=== PATIENT | male | born 1985 | race Caucasian/White ===

== ENCOUNTER 2024-01-04 19:48 | Observation (INO) | payer BC ==
--- NOTE | 2024-01-04 20:36 | RAD REPORT ---
EXAMINATION: ONE VIEW CHEST XR CLINICAL INDICATION: Male, 38 years old.CHEST PAIN TECHNIQUE: 1 View, AP supine, X-ray of the chest was performed. [id number]. COMPARISON: No prior exam. FINDINGS: Lungs and pleura: Clear lungs. No effusion. Heart and mediastinum: Normal heart size. Unremarkable mediastinal contours. Osseous structures: No acute abnormality. Tubes/lines: None Other: None. IMPRESSION: No acute intrathoracic abnormality.
[2024-01-04 20:59] LABS: Absolute Basophils 0.1 K/uL (0-0.5); Absolute Eosinophils 0.7 K/uL (0-0.5); Absolute Lymphocytes (CBC) 1.8 K/uL (0.7-4.9); Absolute Monocytes 0.9 K/uL (0.1-1.3); Absolute Neutrophil 2.9 K/uL (1.8-8.0); Basophils % 1.2 % (0-1.3); Eosinophils % 11.8 % (0-4.4); Hematocrit 37.6 % (39.6-49.0); Hemoglobin 12.5 g/dL (13.6-17.9); Lymphocytes % 28.2 % (15.3-44.8); MCH 28.2 pg (27.0-35.0); MCHC 33.2 g/dL (32.0-36.0); MCV 84.9 fL (80-100); MPV 9.3 fL (7.6-11.3); Monocytes % 13.6 % (3.3-12.3); Neutrophils % 45.2 % (41.7-73.7); Nucleated Red Blood Cells % 0.1 % (0-0); Platelets 266 thou/uL (152-406); RBC Red Blood Cell Count 4.43 M/uL (4.33-5.43)
[2024-01-04 21:06] LABS: Thyroid Stimulating Hormone 2.27 uIU/mL (0.358-3.740); Troponin High Sensitivity 3.8 pg/mL (<58.9)
[2024-01-04] MEDS ORDERED: METOPROLOL TARTRATE 5 MG/5 ML INJ IV ONE (21:26)
--- NOTE | 2024-01-04 21:27 | EDPHYS ---
Physician Documentation [facility] Name: Tad Rosales Age: 38 yrs Sex: Male : 1985 Arrival Date: 01/04/2024 Time: 19:48 Bed 4 Private MD: ED Physician Alex Jason HPI: 01/03 20:21 This 38 yrs old Male presents to ER via Ambulatory with complaints of ec2 Irregular Pulse, Palpitations. 20:21 Patient arrives today for evaluation of palpitations. Patient reports he is been ec2 experiencing palpitation for the past week. Patient reports a history of mitral valve regurgitation as well as cardiomegaly, hypertension. Patient reports no chest pain or difficulty breathing. Reports no vomiting, does endorse some diarrhea.. Historical: - Allergies: 20:11 No Known Allergies; al5 - Home Meds: 20:11 insulin pump cartridge subcutaneous cartridge [Active]; Wellbutrin Oral 150 mg daily al5 [Active]; Lexapro 10 mg Oral tablet daily [Active]; rosuvastatin 40 mg oral tablet daily [Active]; losartan oral [Active]; hydrocodone-acetaminophen 10-325 mg Oral tablet 1 tab as needed [Active]; meloxicam 15 mg oral tablet daily [Active]; Ambien 10 mg Oral tablet every day at bedtime [Active]; methocarbamol 750 mg Oral tablet every day at bedtime [Active]; - PMHx: 20:11 Diabetes mellitus; insomnia; depression; mitral regurgitation; cardiomegaly; al5 - PSHx: 20:16 back surgery; al5 - Immunization history:: Adult Immunizations up to date. - Infectious Disease History:: Denies. - Social history:: Smoking status: Patient denies any tobacco usage or history of. ROS: 20:21 Constitutional: as per hpi ec2 Exam: 20:21 Constitutional: GEN: NAD Head: atraumatic Eyes: EOMI Ears: External ears are ec2 normal. CV: regular rate LUNGS: no respiratory distress ABD: non-distended SKIN: no evidence of rashes MSK: no evidence of trauma Vital Signs: 20:00 BP 139 / 82; Pulse 58; Resp 14; Pulse Ox 100% on R/A; al5 20:10 BP 155 / 98; Pulse 63; Resp 18; Temp 98.2; Pulse Ox 99% on R/A; Weight 97.52 kg; Height al5 6 ft. 4 in. ; Pain 0/10; 20:19 BP 134 / 91; Pulse 62; Resp 18; Pulse Ox 98% on R/A; al5 20:30 BP 143 / 82; Pulse 61; Resp 15; Pulse Ox 99% on R/A; al5 20:48 BP 125 / 82; Pulse 62; Resp 17; Pulse Ox 98% on R/A; al5 21:00 BP 127 / 97; Pulse 110; Resp 17; Pulse Ox 98% on R/A; al5 21:30 BP 127 / 83; Pulse 52; Resp 20; Pulse Ox 98% on R/A; al5 22:00 BP 119 / 75; Pulse 53; Resp 14; Pulse Ox 98% on R/A; al5 20:10 Body Mass Index 26.17 (97.52 kg, 193.04 cm) al5 20:10 Pain Scale: Adult al5 MDM: 19:51 Patient medically screened. ec2 20:02 ED course: EKG independently reviewed and interpreted by me, shows sinus rhythm, rate ec2 of 81, no acute ST segment elevations, intervals are nonactionable.. 20:23 Data reviewed: vital signs. ED course: Patient arrives today for evaluation of ec2 palpitations. Examination remarkable for well-appearing nontoxic individuals otherwise in no acute distress with a reassuring examination. Will obtain lab work, EKG as above, chest x-ray. Differential includes arrhythmia, electrolyte disturbances, ACS.. 20:40 ED course: Chest x-ray shows no acute intrathoracic process . ec2 21:26 ED course: Metabolic profile reassuring. CBC reassuring, troponin within normal ranges, ec2 magnesium, thyroid levels are nonactionable. On reassessment patient with bouts of bigeminy, sinus arrhythmia, rates up to 140s 150s with reassuring blood pressures, patient remains awake alert and conversational. Ultimately I believe patient will be best served inpatient for further cardiac monitoring and cardiology evaluation. Will admit, discussed with hospitalist, pending admission. . 01/03 20:01 Order name: Basic Metabolic Panel; Complete Time: 21:07 ec2 01/03 20:02 Order name: CBC with Diff; Complete Time: 21:07 ec2 01/03 20: Order name: Troponin High Sensitivity; Complete Time: 21: ec2 01/03 20:02 Order name: Magnesium; Complete Time: 21:07 ec2 01/03 20:37 Order name: T4 Free; Complete Time: 21:07 EDMS 01/03 20:37 Order name: Thyroid Stimulating Hormone; Complete Time: 21:07 EDMS 01/03 22:21 Order name: Thyroid Stimulating Hormone EDMS 01/03 22:21 Order name: Urinalysis w/ reflexes EDMS 01/03 22:21 Order name: CBC with Automated Diff EDMS 01/03 22:21 Order name: CBC with Automated Diff EDMS 01/03 22:21 Order name: Comprehensive Metabolic Panel EDMS 01/03 22:21 Order name: Comprehensive Metabolic Panel EDMS 01/03 22:21 Order name: Lipid Profile EDMS 01/03 22:21 Order name: Lipid Profile EDMS 01/03 22:21 Order name: Magnesium EDMS 01/03 22:21 Order name: Magnesium EDMS 01/03 22:21 Order name: Phosphorus EDMS 01/03 22:21 Order name: Phosphorus EDMS 01/03 22:21 Order name: Troponin High Sensitivity EDMS 01/03 22:21 Order name: Troponin High Sensitivity EDMS 01/03 22:21 Order name: Troponin High Sensitivity EDMS 01/03 22:21 Order name: Troponin High Sensitivity EDMS 01/03 20:02 Order name: XRAY Chest (1 view); Complete Time: 20:40 ec2 01/03 20:02 Order name: EKG; Complete Time: 20:02 ec2 01/03 22:21 Order name: CONS Physician Consult EDMS 01/03 20:02 Order name: Cardiac monitoring; Complete Time: 20:10 ec2 01/03 20:02 Order name: EKG - Nurse/Tech; Complete Time: 20:10 ec2 01/03 20:02 Order name: IV Saline Lock; Complete Time: 20:31 ec2 01/03 20:02 Order name: Labs collected and sent; Complete Time: 20:31 ec2 01/03 20:02 Order name: O2 Per Protocol; Complete Time: 20:10 ec2 01/03 20:02 Order name: O2 Sat Monitoring; Complete Time: 20:10 ec2 Administered Medications: 20:22 CANCELLED (Physician Discretion): gjodtnsz-drusrjyqz-aiaiwphhcnwgz 1 drops Ophthalmic ec2 once 21:32 Drug: Metoprolol IVP 5 mg IVP every 5 minutes; Hold for SBP < 100 or HR < 60. x3 Route: al5 IVP; Site: left antecubital; 22:04 Follow up: Response: No adverse reaction al5 22:05 Follow up: Response: Other; heart rhythm unchanged al5 Disposition Summary: 01/04/24 21:26 Hospitalization Ordered Notes: Hospitalization Status: Observation ec2 Provider: Lorenzo Sargent ec2 Location: Telemetry/MedSurg (observation) ec2 Condition: Stable ec2 Problem: an ongoing problem ec2 Bed/Room Type: Standard ec2 Symptoms: are unchanged(01/04/24 21:27) ec2 Room Assignment: 206(01/04/24 22:51) cg Diagnosis - Palpitations ec2 - Cardiac arrhythmia, unspecified ec2 Forms: - Medication Reconciliation Form ec2 - SBAR form ec2 - Leadership Thank You Letter ec2 Signatures: Dispatcher [employer] Bonnie Griggs RN RN cg Alex Jason MD MD ec2 Yadi Schwartz RN RN al5 Corrections: (The following items were deleted from the chart) 20:02 20:02 Chest Single View+RAD.RAD.BRZ ordered. EDMS EDMS 20:22 20:22 Plwztzea-Niieexrmk-Iogkhnqe Ophthalmic Drops 1 drops Ophthalmic in both eyes once ec2 ordered. ec2 20:37 20:22 THYROID STIMULAT HORMONE+C.LAB.BRZ ordered. EDMS EDMS 20:37 20:22 T4 FREE+C.LAB.BRZ ordered. EDMS EDMS 21:27 21:26 have improved ec2 ec2 22:51 21:26 ec2 cg
--- NOTE | 2024-01-04 21:27 | ER ---
Nurse's Notes [facility] Name: Tad Rosales Age: 38 yrs Sex: Male : 1985 Arrival Date: 01/04/2024 Time: 19:48 Bed 4 Private MD: Diagnosis: Palpitations;Cardiac arrhythmia, unspecified Presentation: 01/03 20:10 Chief complaint: Patient states: c/o intermittent heart palpitations x1 week. al5 Coronavirus screen: At this time, the client does not indicate any symptoms associated with coronavirus-19. Ebola Screen: No symptoms or risks identified at this time. Initial Sepsis Screen: Does the patient meet any 2 criteria? No. Patient's initial sepsis screen is negative. Does the patient have a suspected source of infection? No. Patient's initial sepsis screen is negative. Risk Assessment: Do you want to hurt yourself or someone else? Patient reports no desire to harm self or others. Onset of symptoms was December 29, 2023. 20:10 Method Of Arrival: Ambulatory al5 20:10 Acuity: ROME 3 al5 Triage Assessment: 20:16 General: Appears in no apparent distress. Behavior is calm, cooperative. Pain: Denies al5 pain. EENT: No signs and/or symptoms were reported regarding the EENT system. Neuro: Level of Consciousness is awake, alert, obeys commands, Oriented to person, place, time, situation. Cardiovascular: Reports palpitations, Capillary refill < 3 seconds Patient's skin is warm and dry. Rhythm is sinus rhythm with sinus arrhythmia. Respiratory: Airway is patent Respiratory effort is even, unlabored, Respiratory pattern is regular, symmetrical. GI: No signs and/or symptoms were reported involving the gastrointestinal system. : No signs and/or symptoms were reported regarding the genitourinary system. Derm: Skin is intact, Skin is pink, warm \T\ dry. normal. Musculoskeletal: No signs and/or symptoms reported regarding the musculoskeletal system. Historical: - Allergies: 20:11 No Known Allergies; al5 - Home Meds: 20:11 insulin pump cartridge subcutaneous cartridge [Active]; Wellbutrin Oral 150 mg daily al5 [Active]; Lexapro 10 mg Oral tablet daily [Active]; rosuvastatin 40 mg oral tablet daily [Active]; losartan oral [Active]; hydrocodone-acetaminophen 10-325 mg Oral tablet 1 tab as needed [Active]; meloxicam 15 mg oral tablet daily [Active]; Ambien 10 mg Oral tablet every day at bedtime [Active]; methocarbamol 750 mg Oral tablet every day at bedtime [Active]; - PMHx: 20:11 Diabetes mellitus; insomnia; depression; mitral regurgitation; cardiomegaly; al5 - PSHx: 20:16 back surgery; al5 - Immunization history:: Adult Immunizations up to date. - Infectious Disease History:: Denies. - Social history:: Smoking status: Patient denies any tobacco usage or history of. Screenin:18 [facility] ED Fall Risk Assessment (Adult) History of falling in the last 3 months, al5 including since admission No falls in past 3 months (0 pts). [facility] ED Fall Risk Assessment (Adult) Confusion or Disorientation No (0 pts) Intoxicated or Sedated No (0 pts) Impaired Gait No (0 pts) Mobility Assist Device Used No (0 pt) Altered Elimination No (0 pt) Score/Fall Risk Level 0 - 2 = Low Risk Oriented to surroundings, Maintained a safe environment, Hourly rounding (assess needs \T\ fall precautionary measures) done. Abuse screen: Denies threats or abuse. Denies injuries from another. Nutritional screening: No deficits noted. Tuberculosis screening: No symptoms or risk factors identified. Assessment: 20:17 Reassessment: see triage assessment. Pain: Denies pain. Pain does not radiate. al5 21:33 Reassessment: Patient appears in no apparent distress at this time. No changes from al5 previously documented assessment. Patient and/or family updated on plan of care and expected duration. Pain level reassessed. Patient is alert, oriented x 3, equal unlabored respirations, skin warm/dry/pink. 21:33 Reassessment: patient admitted at this time. al5 23:42 Reassessment: patient leaving ama before going upstairs, Dr. Sargent aware. prescription al5 sent with patient for metoprolol XL 25 mg for 30 days. 23:45 Reassessment: STATE EPIDEMIOLOGIST TIFFANY SOW NOTIFIED OF AMA. ha1 Vital Signs: 20:00 BP 139 / 82; Pulse 58; Resp 14; Pulse Ox 100% on R/A; al5 20:10 BP 155 / 98; Pulse 63; Resp 18; Temp 98.2; Pulse Ox 99% on R/A; Weight 97.52 kg; Height al5 6 ft. 4 in. ; Pain 0/10; 20:19 BP 134 / 91; Pulse 62; Resp 18; Pulse Ox 98% on R/A; al5 20:30 BP 143 / 82; Pulse 61; Resp 15; Pulse Ox 99% on R/A; al5 20:48 BP 125 / 82; Pulse 62; Resp 17; Pulse Ox 98% on R/A; al5 21:00 BP 127 / 97; Pulse 110; Resp 17; Pulse Ox 98% on R/A; al5 21:30 BP 127 / 83; Pulse 52; Resp 20; Pulse Ox 98% on R/A; al5 22:00 BP 119 / 75; Pulse 53; Resp 14; Pulse Ox 98% on R/A; al5 20:10 Body Mass Index 26.17 (97.52 kg, 193.04 cm) al5 20:10 Pain Scale: Adult al5 ED Course: 19:50 Patient arrived in ED. jj6 19:51 Allison Finney, TIFFANY is Primary Nurse. ha1 19:51 Alex Jason MD is Attending Physician. ec2 20:11 Triage completed. al5 20:17 Arm band placed on right wrist. Patient placed in the treatment room, on a stretcher. al5 20:17 EKG completed in triage. Results shown to MD. al5 20:18 Patient has correct armband on for positive identification. Bed in low position. Call al5 light in reach. Side rails up X2. Provided Education on: plan of care. Client placed on continuous cardiac and pulse oximetry monitoring. NIBP monitoring applied. patient monitor on. 20:18 No provider procedures requiring assistance completed. Patient maintains SpO2 al5 saturation greater than 95% on room air. 20:26 Inserted saline lock: 20 gauge in left antecubital area, using aseptic technique. Blood sa1 collected. Flushed with 10 mL NS. 20:31 Basic Metabolic Panel Sent. sa1 20:31 CBC with Diff Sent. sa1 20:34 XRAY Chest (1 view) In Process Unspecified. EDMS 21:26 Lorenzo Sargent MD is Hospitalizing Provider. ec2 21:40 Yadi Schwartz, TIFFANY is Primary Nurse. al5 23:16 Notified the Hospitalist of patient wishing to leave as he has work at 11. ty 23:41 IV discontinued, intact, bleeding controlled, No redness/swelling at site. Pressure al5 dressing applied. Administered Medications: 20:22 CANCELLED (Physician Discretion): nmzpwkfb-quysvrpuv-kosnferqcawcm 1 drops Ophthalmic ec2 once 21:32 Drug: Metoprolol IVP 5 mg IVP every 5 minutes; Hold for SBP < 100 or HR < 60. x3 Route: al5 IVP; Site: left antecubital; 22:04 Follow up: Response: No adverse reaction al5 22:05 Follow up: Response: Other; heart rhythm unchanged al5 Medication: 20:18 VIS not applicable for this client. al5 Outcome: 21:26 Decision to Hospitalize by Provider. ec2 21:30 Admitted to ER Hold. [facility]. al5 21:30 Condition: good al5 21:30 Instructed on the need for admit, 23:51 Patient left the ED. ha1 Signatures: Dispatcher [employer] Caroline Hamj6 Allison Finney, RN RN ha1 Alex Jason MD MD ec2 Torrey Lombardo Amanda, RN RN al5 Sultan jannie Lizama
[2024-01-04] MEDS ORDERED: ACETAMINOPHEN 325 MG TABLET PO PRN (22:16)
[2024-01-04] MEDS ORDERED: ONDANSETRON 4 MG/2 ML VIAL IV PRN (22:16)
--- NOTE | 2024-01-04 22:16 | P.HP ---
Certification for Inpatient Patient admitted to: Observation With expected LOS: <2 Midnights Practitioner: I am a practitioner with admitting privileges, knowledge of patient current condition, hospital course, and medical plan of care. Services: Services provided to patient in accordance with Admission requirements found in Title 42 Section 412.3 of the Code of Federal Regulations Patient History Date of Service: 01/05/24 Reason for admission: Chest Discomfort History of Present Illness: 38 yrs old Male with past medical history of diabetes,, mitral regurgitation, cardiomegaly, history of back surgery, depression who was brought to ER with palpitations and chest discomfort. Patient had irregular pulse and palpitation which started for the last 1 week ago and has been progressively worsening and was brought to ER . Denies any fever or chills. No nausea vomiting or diarrhea. No shortness of breath. Patient was assessed in the ER and found to have multiple PVCs and was admitted for further management Allergies No Known Allergies Allergy (Unverified 01/04/24 22:28) Home Medications: Metoprolol Succinate [Toprol Xl] 25 mg PO DAILY 30 Days #30 tab.sr.24h 01/04/24 - Past Medical/Surgical History Past Medical History: Reviewed- Non-Contributory Past Surgical History: Reviewed- Non-Contributory -: back - Family History Family History: Reviewed- Non-Contributory - Social History Smoking Status: Never smoker Review of Systems 10-point ROS is otherwise unremarkable Physical Examination - Vital Signs Temperature: 98.2 F Blood Pressure: 138/82 Pulse: 58 Respirations: 18 Pulse Ox (%): 94 - Physical Exam General: Alert, In no apparent distress, Oriented x3 HEENT: Atraumatic, Normocephalic Neck: Supple, No Thyromegaly Respiratory: Clear to auscultation bilaterally, Normal air movement Cardiovascular: Normal S1 S2, Irregular heart rate/rhythm Capillary refill: <2 Seconds Gastrointestinal: Soft and benign, W/out hepatosplenomegaly Musculoskeletal: No clubbing, No swelling Integumentary: No breakdown, No significant lesion Neurological: Normal speech, Normal strength at 5/5 x4 extr, Cranial nerves 3-12 intact, Normal reflexes 2+, Normal affect Lymphatics: No axilla or inguinal lymphadenopathy - Studies Laboratory Data (last 24 hrs) 01/04/24 01/04/24 20:26 20:26 WBC 6.30 Hgb 12.5 L Hct 37.6 L Plt Count 266 Sodium 138 Potassium 4.0 BUN 15 Creatinine 1.06 Glucose 157 H Magnesium 2.0 Assessment and Plan - Plan Palpitation Sinus Arrhythmia with Multiple PVCs Monitor closely on telemetry Started on metoprolol Admit to Medr Monitor closely under telemetry and trend cardiac enzymes Cardiology consulted Will get an echocardiogram Hypertension Antihypertensives titrated Continue home medications and titrate as needed Diabetes Insulin sliding scale Accu-Chek before every meal and at bedtime Anxiety Continue home medications and titrate as needed GI/DVT prophylaxis Advanced directive full code Discharge Plan: Home Plan to discharge in: 24 Hours - Advance Directives Does patient have a Living Will: No Does patient have a Durable POA for Healthcare: No - Code Status/Comfort Care Code Status: Full Code Time Spent Managing Pts Care (In Minutes): 48
[2024-01-05 00:18] VITALS: TEMP 98.2
[2024-01-05 00:26] VITALS: O2SAT 98
[2024-01-05] MEDS ORDERED: ENOXAPARIN 40 MG/0.4 ML SQ SCH (09:00)
[2024-01-05 21:29] VITALS: BP 138/82
--- NOTE | 2024-01-05 21:35 | P.DS ---
Admission Date: 01/04/24 Discharge Date: 01/05/24 Disposition: AMA-LEFT AGAINST MEDICAL ADVIC Reason for Admission: Chest Discomfort Brief History of Present Illness: 38 yrs old Male with past medical history of diabetes,, mitral regurgitation, cardiomegaly, history of back surgery, depression who was brought to ER with palpitations and chest discomfort. Patient had irregular pulse and palpitation which started for the last 1 week ago and has been progressively worsening and was brought to ER . Denies any fever or chills. No nausea vomiting or diarrhea. No shortness of breath. Patient was assessed in the ER and found to have multiple PVCs and was admitted for further management Hospital Course: Patient was admitted today to [facility] and was monitored under telemetry and was started on metoprolol XL 25 mg daily PVCs much better, and patient felt better Patient is alert AMA as she does not want to stay in the hospital and wanted to follow-up with cardiology as outpatient Vital Signs/Physical Exam: Temp Pulse Resp BP Pulse Ox 98.2 F 58 18 138/82 94 01/05/24 21:28 01/05/24 21:28 01/05/24 21:28 01/05/24 21:28 01/05/24 21:28 General: Alert, In no apparent distress, Oriented x3 HEENT: Atraumatic, Normocephalic Neck: Supple Respiratory: Clear to auscultation bilaterally, Normal air movement Cardiovascular: Normal S1 S2 Capillary refill: <2 Seconds Gastrointestinal: Soft and benign, W/out hepatosplenomegaly Musculoskeletal: No clubbing Integumentary: No rashes Neurological: Normal strength at 5/5 x4 extr Lymphatics: No axilla or inguinal lymphadenopathy Laboratory Data at Discharge: WBC 6.30 thou/uL (4.3-10.9) 01/04/24 20:26 Hgb 12.5 g/dL (13.6-17.9) L 01/04/24 20:26 Hct 37.6 % (39.6-49.0) L 01/04/24 20:26 Plt Count 266 thou/uL (152-406) 01/04/24 20:26 Sodium 138 mEq/L (136-145) 01/04/24 20:26 Potassium 4.0 mEq/L (3.5-5.1) 01/04/24 20:26 BUN 15 mg/dL (7-18) 01/04/24 20:26 Creatinine 1.06 mg/dL (0.70-1.30) 01/04/24 20:26 Glucose 157 mg/dL (74-106) H 01/04/24 20:26 Magnesium 2.0 mg/dL (1.6-2.4) 01/04/24 20:26 Home Medications: Metoprolol Succinate [Toprol Xl] 25 mg PO DAILY 30 Days #30 tab.sr.24h 01/04/24 New Medications: Metoprolol Succinate [Toprol Xl] 25 mg PO DAILY 30 Days #30 tab.sr.24h Followup: [facility] [Primary Care Provider] - Jalen Jacobs MD [ACTIVE - CAN ADMIT] - Time spent managing pt's care (in minutes): 38
--- NOTE | 2024-01-06 11:57 | EKG ---
Test Date: 2024-01-04 Test Time: 19:59:42 [employer] Exchange Repairer: EM MEASUREMENT RESULTS: Intervals: Rate: 81 DE: 162 QRSD: 98 QT: 350 QTc: 406 [place]: P: 82 DE: 162 QRS: 94 T: 61 INTERPRETIVE STATEMENTS: Sinus rhythm with marked sinus arrhythmia Otherwise normal ECG No previous ECG available for comparison Electronically Signed On 01-06-24 11:52:58 CDT by Wallace Cortez
== END 2024-01-04 23:47 | disposition left against medical advice (07) ==
LOC: ER 19:48 → ERHOLD 22:16 → 2ND 23:39
PROVIDERS: ADMIT Family Medicine; ATTEND Internal Medicine
DX: I49.3 Ventricular premature depolarization (principal); E11.9 Type 2 diabetes mellitus without complications; F32.A Depression, unspecified; I51.7 Cardiomegaly; I34.0 Nonrheumatic mitral (valve) insufficiency; F41.9 Anxiety disorder, unspecified; Z53.29 Procedure and treatment not carried out because of patient's decision for other reasons
CPT/HCPCS: 85025; 80048; 36415; 83735; 84443; 84484; 84439; 71045; 96374; 99285; G0378 ×2; 93005